=== PATIENT | male | born 1985 | race Caucasian/White ===

== ENCOUNTER 2016-09-17 16:58 | Emergency (ER) | payer OTHER ==
[2016-09-17 17:58] LABS: Hematocrit 50 % (42-52); Hemoglobin 16.8 g/dl (14.0-18.0); Mean Corpuscular HGB Conc 34 g/dl (31-36); Mean Corpuscular Hemoglobin 31 pg (27-31); Mean Corpuscular Volume 92 fL (80-94); Mean Platelet Volume 10 um3 (7.4-10.4); Red Blood Count 5.41 10^6/ul (4.0-5.4); Red Cell Distribution Width 13 % (10.5-15); White Blood Count 6.6 10^3/ul (3.5-10.8)
--- NOTE | 2016-09-17 18:19 | ED ---
HPI Chest Pain - HPI Summary HPI Summary: 31M presents with intermittent chest pain for many months. He states that is used to be epigastric pain that radiates to the chest but it has recently changed in chest pain that radiates to right arm. He denies any SOB. He states the pain is stabbing in nature but sometimes becomes pressure like. The pain last from 5 mins to an hour. The pain occurs 3-5 times a day. The pain is always located in the same location. He admits to occasionally nausea with the pain. He denies any pain or swelling in the calves. He denies any cough. He is a smoker a half a pack a day for 10 years. He does not have a history of HTN, DM, or CAD. He does have a history of PTSD and anxiety. He is seen at the [facility]. He does have a family history of CAD and HTN. - History of Current Complaint Chief Complaint: EDChestPainROMI Time Seen by Provider: 09/17/16 17:23 Pain Intensity: 5 - Allergy/Home Medications Allergies/Adverse Reactions: Allergies Allergy/AdvReac Type Severity Reaction Status Date / Time No Known Allergies Allergy Verified 09/17/16 17:27 PMH/Surg Hx/FS Hx/Imm Hx Endocrine/Hematology History: Denies: Hx Anticoagulant Therapy, Hx Diabetes Cardiovascular History: Denies: Hx Hypertension Infectious Disease History: No Infectious Disease History: Denies: Traveled Outside the [place] in Last 30 Days - Family History Known Family History: Positive: Cardiac Disease, Hypertension - Social History Alcohol Use: None Substance Use Type: Reports: None Smoking Status (MU): Unknown if Ever Smoked Review of Systems Negative: Fever Positive: Chest Pain Negative: Shortness Of Breath, Cough Positive: Nausea. Negative: Abdominal Pain, Vomiting All Other Systems Reviewed And Are Negative: Yes Physical Exam Triage Information Reviewed: Yes Vital Signs On Initial Exam: Initial Vitals Temp Pulse Resp BP Pulse Ox 98.4 F 73 16 114/76 95 09/17/16 17:14 09/17/16 17:14 09/17/16 17:14 09/17/16 17:14 09/17/16 17:14 Vital Signs Reviewed: Yes Appearance: Positive: Well-Appearing Skin: Positive: Warm, Dry Head/Face: Positive: Normal Head/Face Inspection Eyes: Positive: Normal, Conjunctiva Clear ENT: Positive: Normal ENT inspection, Pharynx normal, TMs normal Respiratory/Lung Sounds: Positive: Clear to Auscultation, Breath Sounds Present , Other - reproducible on exam Cardiovascular: Positive: Normal, RRR - [place] Coma Scale Coma Scale Total: 15 Diagnostics - Vital Signs Vital Signs Temp Pulse Resp BP Pulse Ox 09/17/16 18:00 71 16 116/76 96 09/17/16 17:41 69 14 113/80 95 09/17/16 17:30 76 16 116/77 95 09/17/16 17:28 86 95 09/17/16 17:26 115/78 09/17/16 17:14 98.4 F 73 16 114/76 95 - Laboratory Lab Results: Lab Results 09/17/16 Range/Units 17:40 WBC 6.6 (3.5-10.8) 10^3/ul RBC 5.41 H (4.0-5.4) 10^6/ul Hgb 16.8 (14.0-18.0) g/dl Hct 50 (42-52) % MCV 92 (80-94) fL MCH 31 (27-31) pg MCHC 34 (31-36) g/dl RDW 13 (10.5-15) % Plt Count 249 (150-450) 10^3/ul MPV 10 (7.4-10.4) um3 Neut % (Auto) 54.7 (38-83) % Lymph % (Auto) 32.7 (25-47) % Kerr % (Auto) 8.5 (1-9) % Eos % (Auto) 3.6 (0-6) % Baso % (Auto) 0.5 (0-2) % Absolute Neuts (auto) 3.6 (1.5-7.7) 10^3/ul Absolute Lymphs (auto) 2.2 (1.0-4.8) 10^3/ul Absolute Monos (auto) 0.6 (0-0.8) 10^3/ul Absolute Eos (auto) 0.2 (0-0.6) 10^3/ul Absolute Basos (auto) 0 (0-0.2) 10^3/ul Absolute Nucleated RBC 0.01 10^3/ul Nucleated RBC % 0.1 Result Diagrams: 09/17/16 17:40 09/17/16 17:40 Lab Statement: Any lab studies that have been ordered have been reviewed, and results considered in the medical decision making process. - Radiology chest Xray Interpretation: No Acute Changes Radiology Interpretation Completed By: Radiologist - EKG 1st Cardiac Rate: NL EKG Rhythm: Sinus Rhythm ST Segment: Normal Ectopy: None EKG Interpretation: sinus rhythmn 75bpm EKG Comparison: No Significant Change Re-Evaluation - Re-Evaluation First Eval Re-Evaluation Time: 19:49 Change: Unchanged Comment: gave toradol and GI cocktail and no improvement. pain still reproducible. could be musculoskeletal vs anxiety. Chest Pain Course/Dx - Course Course Of Treatment: 31M presents with intermittent chest pain for many months. He states the pain is located on the left side of his chest pain and radiates to her right arm. He denies any SOB with it but states he is occasionally nausous. He does have a history of gastritis but denies any abdominal pain currently. He is a smoker but does not have a history of HTN, high cholesterol, or DM. The pain changes from sharp to pressure like. on exam pain is reproducible. EKG normal and unchanged from files from [facility]. chest xray normal. labs: troponin normal. d-dimer normal. wanted patient to stay for another troponin but patient refused. discussed that can not definitively rule out CAD without trending the troponins but patient still wanted to leave, told to return if develop SOB or if chest pain changes. patient understands and agrees with plan - Chest Pain Differential Diagnosis/HQI/PQRI: Acute UT, Angina, Chest Wall, Other: - gastritis - Diagnoses Provider Diagnoses: Chest pain Discharge - Discharge Plan Condition: Stable Disposition: HOME Patient Education Materials: Chest Pain (ED) Referrals: Non Staff,Doctor [Primary Care Provider] - Additional Instructions: Follow up with [facility] Take tyenlol or ibuprofen for pain every 6 hours Return to ED if chest pain changes in any way, if become short of breath, or develop any new or worsening symptoms
[2016-09-17 18:20] LABS: Albumin 4.4 g/dL (3.2-5.2); BUN/Creatinine Ratio 7.5 (8-20); Calcium 9.5 mg/dL (8.6-10.3); EGFR Non-African American 114.3 (>60); Globulin 3.1 g/dL (2-4); Potassium 3.8 mmol/L (3.5-5.0); Total Bilirubin 0.5 mg/dL (0.2-1.0); Total Protein 7.5 g/dL (6.4-8.9)
[2016-09-17] MEDS ORDERED: Lidocaine 2% VISCOUS* 15 ML UDC PO ONE (18:23)
[2016-09-17] MEDS ORDERED: Al Hydrox/Mg Hydrox/Simet LIQ* 30 ML UDC PO ONE (18:23)
--- NOTE | 2016-09-17 18:25 | RAD ---
HISTORY: Chest pain COMPARISONS: None VIEWS:1: Single frontal portable view of the chest at 5:39 PM FINDINGS: LINES AND TUBES: None. CARDIOMEDIASTINAL SILHOUETTE: The cardiomediastinal silhouette is normal for portable technique. PLEURA: The costophrenic angles are sharp. No pleural abnormalities are noted. LUNG PARENCHYMA: The lungs are clear. ABDOMEN: The upper abdomen is clear. There is no subphrenic gas. BONES AND SOFT TISSUES: No bone or soft tissue abnormalities are noted. IMPRESSION: NO ACTIVE CARDIOPULMONARY DISEASE.
[2016-09-17] MEDS ORDERED: Ketorolac INJ* 30 MG/ML 1 ML VIAL IV PUSH ONE (18:37)
[2016-09-17 19:07] LABS: TSH (Thyroid Stimulating Horm) 0.76 mcIU/mL (0.34-5.60)
== END 2016-09-17 20:24 | disposition home or self-care (01) ==
LOC: ED 16:58
DX: R07.9 Chest pain, unspecified (principal); R11.0 Nausea
CPT/HCPCS: 36415; 71010; 80053; 83605; 84443; 84484; 85025; 85379; 93005; 96374; 99283; A9270-GY; J1885